=== PATIENT | male | born 1950 | race Caucasian/White ===

== ENCOUNTER → 2017-05-15 | Outpatient (CLI) | payer OTHER ==
[~2017-05-15] MED LIST: AMLO5 PO; ASPI325 PO; BENTYL10 MG PO; CODACE30 PO; DIVALPROEX PO; FISH1000 PO; LEVSOD100 PO; LISHYD2025 PO; MELO7.5 PO; METO50ER PO; SIMV40 PO
[2017-05-15 18:54] LABS: BASOPHILS ABSOLUTE AUTO 0.12 K/mm3 (0.00-0.23); BASOPHILS PERCENT AUTO 1 % (0-2); EOSINOPHILS ABSOLUTE AUTO 0.42 K/mm3 (0.00-0.68); EOSINOPHILS PERCENT AUTO 4 % (0-6); Hematocrit 47.7 % (37.0-53.0); Hemoglobin 16.4 g/dL (13.5-17.5); IMMATURE GRAN ABSOLUTE AUTO 0.06 K/mm3 (0.00-0.10); IMMATURE GRAN PERCENT AUTO 1 % (0-1); LYMPHOCYTES ABSOLUTE AUTO 4.15 K/mm3 (0.84-5.20); LYMPHOCYTES PERCENT AUTO 39 % (21-46); MONOCYTES ABSOLUTE AUTO 1.12 K/mm3 (0.16-1.47); MONOCYTES PERCENT AUTO 11 % (4-13); Mean Corpuscular HGB 31.5 pg (26.0-34.0); Mean Corpuscular HGB Conc 34.4 g/dL (31.5-36.5); Mean Corpuscular Volume 92 fL (80-100); Mean Platelet Volume 10.4 fL (9.1-12.4); NEUTROPHILS ABSOLUTE AUTO 4.79 K/mm3 (1.96-9.15); NEUTROPHILS PERCENT AUTO 45 % (41-73); Platelet Count 300 K/mm3 (150-400); RDW Coefficient Variation 12.5 % (11.7-14.2); RDW Standard Deviation 41.5 fL (35.1-46.3); Red Blood Cell Count 5.21 M/mm3 (4.30-5.90); White Blood Cell Count 10.66 K/mm3 (4.00-11.30)
[2017-05-15 19:04] LABS: Alanine Aminotransfer (ALT/SGP 50 U/L (12-78); Albumin, Blood 3.8 g/dL (3.4-5.0); Albumin/Globulin Ratio 1.2 (0.8-1.8); Alk Phos 67 U/L (40-126); Anion Gap 8 mmol/L (6-16); Aspartate Aminotrans (AST/SGOT 28 U/L (12-37); Bilirubin, Total 0.3 mg/dL (0.1-1.0); Blood Urea Nitrogen 19 mg/dL (8-24); Bun/Creatinine Ratio 17.6 (12.0-20.0); CO2, Blood 28 mmol/L (21-32); Calcium, Blood 9.4 mg/dL (8.5-10.1); Chloride, Blood 101 mmol/L (98-108); Creatinine, Blood 1.08 mg/dL (0.60-1.20); Globulin, Blood 3.3 g/dL (2.2-4.0); Glomerular Filtration Rate >60 (60-); Glucose, Blood 107 mg/dL (70-99); Potassium, Blood 3.9 mmol/L (3.5-5.5); Sodium, Blood 137 mmol/L (136-145); Total Protein, Blood 7.1 g/dL (6.4-8.2)
== END | disposition home or self-care (01) ==
LOC: LAB EV 18:49
PROVIDERS: Physician Assistant
DX: R10.31 Right lower quadrant pain (principal)
CPT/HCPCS: 80053; 85025

== ENCOUNTER → 2017-11-06 | Outpatient (CLI) | payer MEDICARE | END | disposition home or self-care (01) | LOC: LAB 11:37 → LAB SHORT 11:37 | DX: N39.0 Urinary tract infection, site not specified (principal) | CPT/HCPCS: 87086 ==

== ENCOUNTER → 2019-01-21 | Outpatient (CLI) | payer OTHER | END | disposition home or self-care (01) | LOC: LAB SHORT 12:54 → LAB 12:54 | DX: A02.0 Salmonella enteritis (principal); R19.7 Diarrhea, unspecified | CPT/HCPCS: 87015; 87045; 87046; 87205; 87899 ==

== ENCOUNTER 2019-10-19 10:31 | Inpatient (IN) | payer OTHER ==
[~2019-10-19] VITALS: Ht 175.3 cm; Wt 111.1 kg
[~2019-10-19 10:31] MED LIST changes: -AMLO5 PO; -BENTYL10 MG PO; -CODACE30 PO; -FISH1000 PO; -LISHYD2025 PO
[2019-10-19 10:45] LABS: Calcium, Ionized (POC) 1.17 mmol/L (1.10-1.46); Chloride (POC) 97 mmol/L (98-108); Creatinine (POC) 0.9 mg/dL (0.8-1.3); Glucose (ISTAT POC) 206 mg/dL (70-99); Hemoglobin (POC) 16.7 g/dL (13.5-17.5); Potassium (POC) 4.2 mmol/L (3.5-5.5); Sodium (POC) 137 mmol/L (135-148); Total CO2 (POC) 28 mmol/L (21-32)
[2019-10-19 11:21] LABS: BASOPHILS ABSOLUTE AUTO 0.07 K/mm3 (0.00-0.23); BASOPHILS PERCENT AUTO 1 % (0-2); EOSINOPHILS ABSOLUTE AUTO 0.38 K/mm3 (0.00-0.68); EOSINOPHILS PERCENT AUTO 5 % (0-6); Hematocrit 49.3 % (37.0-53.0); Hemoglobin 16.2 g/dL (13.5-17.5); IMMATURE GRAN ABSOLUTE AUTO 0.06 K/mm3 (0.00-0.10); IMMATURE GRAN PERCENT AUTO 1 % (0-1); LYMPHOCYTES ABSOLUTE AUTO 2.76 K/mm3 (0.84-5.20); LYMPHOCYTES PERCENT AUTO 34 % (21-46); MONOCYTES ABSOLUTE AUTO 0.92 K/mm3 (0.16-1.47); MONOCYTES PERCENT AUTO 11 % (4-13); Mean Corpuscular HGB 30.9 pg (26.0-34.0); Mean Corpuscular HGB Conc 32.9 g/dL (31.5-36.5); Mean Corpuscular Volume 94 fL (80-100); NEUTROPHILS ABSOLUTE AUTO 4.05 K/mm3 (1.96-9.15); NEUTROPHILS PERCENT AUTO 49 % (41-73); Platelet Count 251 K/mm3 (150-400); RDW Coefficient Variation 12.6 % (11.7-14.2); RDW Standard Deviation 43.4 fL (35.1-46.3); Red Blood Cell Count 5.24 M/mm3 (4.30-5.90); White Blood Cell Count 8.24 K/mm3 (4.00-11.30)
[2019-10-19 11:36] LABS: Alanine Aminotransfer (ALT/SGP 44 U/L (12-78); Albumin, Blood 3.8 g/dL (3.4-5.0); Albumin/Globulin Ratio 1.3 (0.8-1.8); Alk Phos 79 U/L (50-136); Anion Gap 5 mmol/L (6-16); Aspartate Aminotrans (AST/SGOT 26 U/L (12-37); Bilirubin, Total 0.4 mg/dL (0.1-1.0); Blood Urea Nitrogen 20 mg/dL (8-24); Bun/Creatinine Ratio 24.2 (12.0-20.0); CO2, Blood 30 mmol/L (21-32); Calcium, Blood 8.9 mg/dL (8.5-10.1); Chloride, Blood 102 mmol/L (98-108); Creatinine, Blood 0.83 mg/dL (0.60-1.20); Globulin, Blood 2.9 g/dL (2.2-4.0); Glomerular Filtration Rate >60 (60-); Glucose, Blood 212 mg/dL (70-99); International Normalized Ratio 0.95; Potassium, Blood 4.3 mmol/L (3.5-5.5); Prothrombin Time Results 10.2 Sec (9.7-11.5); Sodium, Blood 137 mmol/L (136-145); Total Protein, Blood 6.7 g/dL (6.4-8.2); Troponin I <0.015 ng/mL (0.000-0.040)
[2019-10-19] MEDS ORDERED: Dicyclomine HCl10 MG PO (12:24)
[2019-10-19] MEDS ORDERED: METFORMIN HCL500 M2 PO (12:25)
[2019-10-19] MEDS ORDERED: Metoprolol Tart50 MG PO (12:25)
[2019-10-19] MEDS ORDERED: TAMSULOSIN HCL0.4 M1 PO (12:25)
[2019-10-19] MEDS ORDERED: ATOR40TA PO (12:26)
[2019-10-19] MEDS ORDERED: CODACE30 PO (12:27)
[2019-10-19] MEDS ORDERED: AMLO5 PO (12:27)
[2019-10-19] MEDS ORDERED: NAPROXEN500 MG PO (12:28)
[2019-10-19] MEDS ORDERED: Ventolin/Prove6.7 GM INH (12:29)
[2019-10-19] MEDS ORDERED: NEURONTIN300 MG PO (12:29)
[2019-10-19] MEDS ORDERED: ZESTORETIC 20-1 EAC3 PO (12:30)
[2019-10-19] MEDS ORDERED: LEVSOD25 PO (12:30)
[2019-10-19] MEDS ORDERED: FISH OIL 1,2001 EAC1 PO (12:30)
--- NOTE | 2019-10-19 18:17 | NUR ---
PT ARRIVED TO THE UNIT VIA STRETCHER, REPORT RECEIVED FROM TIMBO POZO. PT IS HERE FOR CP WITH ST ELEVATION. PT IS ALERT AND ORIENTED X4, PLEASANT AND COOPERATIVE. GETS UP TO USE BATHROOM FOR TOILETING. VITALS HRR NSR AT 70'S, BP SYSTOLIC 110'S, SATS ABOVE 95% ON 4L OF O2, AFEBRILE. DENIES CHEST PAIN AT THIS TIME, SOB NOTED WITH EXERTION, EXPIRATORY WHEEZES. PT PLAN TO GET ANGIOGRAM TOMORROW, PT NPO AFTER MIDNIGHT PT IS AWARE. PT RESTING IN BED NO COMPLAINS AT THIS TIME, WILL REPORT TO ONCOMING SHIFT.
[2019-10-20 04:20] LABS: BASOPHILS ABSOLUTE AUTO 0.06 K/mm3 (0.00-0.23); BASOPHILS PERCENT AUTO 1 % (0-2); EOSINOPHILS ABSOLUTE AUTO 0.28 K/mm3 (0.00-0.68); EOSINOPHILS PERCENT AUTO 4 % (0-6); Hematocrit 47.1 % (37.0-53.0); Hemoglobin 15.2 g/dL (13.5-17.5); IMMATURE GRAN ABSOLUTE AUTO 0.06 K/mm3 (0.00-0.10); IMMATURE GRAN PERCENT AUTO 1 % (0-1); LYMPHOCYTES ABSOLUTE AUTO 2.22 K/mm3 (0.84-5.20); LYMPHOCYTES PERCENT AUTO 32 % (21-46); MONOCYTES ABSOLUTE AUTO 0.73 K/mm3 (0.16-1.47); MONOCYTES PERCENT AUTO 11 % (4-13); Mean Corpuscular HGB 30.8 pg (26.0-34.0); Mean Corpuscular HGB Conc 32.3 g/dL (31.5-36.5); Mean Corpuscular Volume 95 fL (80-100); Mean Platelet Volume 10.6 fL (9.1-12.4); NEUTROPHILS ABSOLUTE AUTO 3.62 K/mm3 (1.96-9.15); NEUTROPHILS PERCENT AUTO 52 % (41-73); Platelet Count 200 K/mm3 (150-400); RDW Coefficient Variation 12.7 % (11.7-14.2); RDW Standard Deviation 44.3 fL (35.1-46.3); Red Blood Cell Count 4.94 M/mm3 (4.30-5.90); White Blood Cell Count 6.97 K/mm3 (4.00-11.30)
[2019-10-20 04:36] LABS: International Normalized Ratio 0.98; Prothrombin Time Results 10.5 Sec (9.7-11.5)
[2019-10-20 04:41] LABS: Alanine Aminotransfer (ALT/SGP 36 U/L (12-78); Albumin, Blood 3.3 g/dL (3.4-5.0); Albumin/Globulin Ratio 1.2 (0.8-1.8); Alk Phos 60 U/L (50-136); Anion Gap 4 mmol/L (6-16); Aspartate Aminotrans (AST/SGOT 24 U/L (12-37); Bilirubin, Total 0.3 mg/dL (0.1-1.0); Blood Urea Nitrogen 23 mg/dL (8-24); Bun/Creatinine Ratio 26.6 (12.0-20.0); CO2, Blood 33 mmol/L (21-32); Chloride, Blood 100 mmol/L (98-108); Creatinine, Blood 0.87 mg/dL (0.60-1.20); Globulin, Blood 2.7 g/dL (2.2-4.0); Glomerular Filtration Rate >60 (60-); Glucose, Blood 192 mg/dL (70-99); Potassium, Blood 3.7 mmol/L (3.5-5.5); Sodium, Blood 137 mmol/L (136-145)
--- NOTE | 2019-10-20 05:33 | NUR ---
SHIFT SUMMARY: PATIENT HAD NO EPISODES THIS SHIFT, HAS BEEN NPO SINCE 0000, VSS, CALL LIGHT WITHIN REACH, BED LOW AND LOCKED.
--- NOTE | 2019-10-20 10:06 | NUR ---
ASSUME CARE: PT ALERT AND ORIENTED, VITALS HRR SINUS ONT THE 70'S, BP SYSTOLIC 110'S, SATS ABOVE 93% ON 3L SOB WITH EXERTION. ANGIOGRAM CANCELLED TODAY TROPONINS HAS BEEN NEGATIVE PT DENIES CHEST PAIN. DR AZEVEDO RECOMMENDED TO DO STRESS TEST AN OUTPATIENT AT THIS TIME. PT INDEPENDENT IN THE ROOM, NO COMPLAINS AWAITING ORDERS. WILL MONITOR
--- NOTE | 2019-10-20 18:03 | NUR ---
PT SUMMARY: SEE PREVIOUS NOTES. NO OTHER ISSUES ENCOUNTERED FOR THE SHIFT, VITALS HAS BEEN STABLE. PT FOR POSSIBLE DISCHARGE TOMORROW. TO TITRATE O2 TO ROOMAIR. PT CURRENTLY NOW AT 1L OF O2, SATS ABOVE 92%, PT HAS BEEN INDEPENDENT IN THE ROOM. NO C/O CHEST PAIN. WILL REPORT TO ONCOMING SHIFT.
[2019-10-21 04:30] LABS: Anion Gap 5 mmol/L (6-16); Blood Urea Nitrogen 16 mg/dL (8-24); Bun/Creatinine Ratio 21.9 (12.0-20.0); CO2, Blood 29 mmol/L (21-32); Calcium, Blood 8.7 mg/dL (8.5-10.1); Chloride, Blood 101 mmol/L (98-108); Creatinine, Blood 0.73 mg/dL (0.60-1.20); Glomerular Filtration Rate >60 (60-); Glucose, Blood 180 mg/dL (70-99); Sodium, Blood 135 mmol/L (136-145)
--- NOTE | 2019-10-21 08:00 | NUR ---
pt sitting up in chair for breakfast, states he is ready to go home, feels good, a/ox3, pleasant and cooperative with care, follows commands well, denies any pain or sob, states he slept well, lungs are clear dim in bases, resp even and unlabord, no cough noted, is currently on 1 liter 02 via n/c, hrr, tele in place, running sr per monitor, see strip, no edema noted, ppp+2, cap refill <3sec, v.s. sable, afebrile, iv sites are clear and patent, btx4, abd flat soft nontender, voids without diff, skin c/w/d, maew, felicia, call light in reach.
[2019-10-21] MEDS ORDERED: CLOP75 PO (10:28)
[2019-10-21] MEDS ORDERED: ASPI81CH PO (10:28)
[2019-10-21] MEDS ORDERED: PRED20 PO (10:29)
[2019-10-21] MEDS ORDERED: PROAIR RESPICL90 MCG INH (10:30)
[2019-10-21] MEDS ORDERED: FLUTICASONE-SA1 EA11 INH (10:31)
[2019-10-21] MEDS ORDERED: PANT20 PO (10:32)
[2019-10-21] MEDS ORDERED: IPRAT-ALBUT 0.5-3 ML INH (10:32)
--- NOTE | 2019-10-21 11:24 | NUR ---
PT HAS BEEN DISCHARGED TO HOME, WENT OVER DISCHARGE INSTRUCTIONS WITH HIM, HE VERBALIZED UNDERSTANDING, IV X2 REMOVED INTACT, LEFT VIA WHEELCHAIR WITH ESCORT AND FRIEND WHO IS TAKING HIM HOME, NEW MEDICATIONS WERE CALLED INTO HIS PHARMACY. PT HAS ALL HIS BELONGINGS WITH HIM.
== END 2019-10-21 11:32 | disposition home or self-care (01) | DRG 189 ==
LOC: ER 10:31 → PCU 13:04
PROVIDERS: Emergency Medicine; Internal Medicine; Nurse Practitioner Acute Care; ADMIT Internal Medicine
DX: J96.01 Acute respiratory failure with hypoxia (principal); J44.1 Chronic obstructive pulmonary disease with (acute) exacerbation; J96.02 Acute respiratory failure with hypercapnia; I10 Essential (primary) hypertension; E11.9 Type 2 diabetes mellitus without complications; I25.10 Atherosclerotic heart disease of native coronary artery without angina pectoris; G47.33 Obstructive sleep apnea (adult) (pediatric); E03.9 Hypothyroidism, unspecified; E78.5 Hyperlipidemia, unspecified; Z95.5 Presence of coronary angioplasty implant and graft; I25.2 Old myocardial infarction; Z79.82 Long term (current) use of aspirin; Z87.891 Personal history of nicotine dependence
CPT/HCPCS: 36415; 71045; 71260; 80047; 80048; 80053; 82947; 83735; 83880; 84484; 85014; 85025; 85610; 85730; 93005; 93010; 94640; 94760; 94761; 99285-25; A9270-GY; C8929; J1650; J1940; J7030; J7512; Q9957; Q9967; U0002

== ENCOUNTER → 2020-03-01 | Outpatient (CLI) | payer OTHER ==
[~2020-03-01] MED LIST changes: +AMLO5 PO; +ASPI81CH PO; +ATOR40TA PO; +CLOP75 PO; +CODACE30 PO; +Dicyclomine HCl10 MG PO; +FISH OIL 1,2001 EAC1 PO; +FLUTICASONE-SA1 EA11 INH; +IPRAT-ALBUT 0.5-3 ML INH; +LEVSOD25 PO; +METFORMIN HCL500 M2 PO; +Metoprolol Tart50 MG PO; +NAPROXEN500 MG PO; +NEURONTIN300 MG PO; +PANT20 PO; +PRED20 PO; +PROAIR RESPICL90 MCG INH; +TAMSULOSIN HCL0.4 M1 PO; +Ventolin/Prove6.7 GM INH; +ZESTORETIC 20-1 EAC3 PO
== END | disposition home or self-care (01) ==
LOC: LAB 12:37
DX: N39.0 Urinary tract infection, site not specified (principal)
CPT/HCPCS: 87086

== ENCOUNTER 2020-11-30 03:19 | Emergency (ER) | payer OTHER ==
[~2020-11-30] VITALS: Ht 175.3 cm; Wt 102.1 kg
[2020-11-30] MEDS ORDERED: QUET25 PO (14:27)
== END 2020-11-30 07:08 | disposition home or self-care (01) ==
LOC: ER 03:19
DX: F31.9 Bipolar disorder, unspecified (principal); F29 Unspecified psychosis not due to a substance or known physiological condition; E11.9 Type 2 diabetes mellitus without complications; J44.9 Chronic obstructive pulmonary disease, unspecified; I25.2 Old myocardial infarction; Z91.14 Patient's other noncompliance with medication regimen; Z95.5 Presence of coronary angioplasty implant and graft; Z79.899 Other long term (current) drug therapy; Z79.84 Long term (current) use of oral hypoglycemic drugs; Z79.82 Long term (current) use of aspirin
CPT/HCPCS: 99285; A9270; Q3014

== ENCOUNTER 2020-11-30 11:44 | Emergency (ER) | payer OTHER ==
[~2020-11-30] VITALS: Ht 175.3 cm; Wt 102.1 kg
[2020-11-30 12:18] LABS: BASOPHILS ABSOLUTE AUTO 0.02 K/mm3 (0.00-0.23); BASOPHILS PERCENT AUTO 0 % (0-2); EOSINOPHILS PERCENT AUTO 0 % (0-6); Hematocrit 46.1 % (37.0-53.0); Hemoglobin 16.1 g/dL (13.5-17.5); IMMATURE GRAN ABSOLUTE AUTO 0.01 K/mm3 (0.00-0.10); IMMATURE GRAN PERCENT AUTO 0 % (0-1); LYMPHOCYTES ABSOLUTE AUTO 1.44 K/mm3 (0.84-5.20); LYMPHOCYTES PERCENT AUTO 26 % (21-46); MONOCYTES PERCENT AUTO 9 % (4-13); Mean Corpuscular HGB 31.8 pg (26.0-34.0); Mean Corpuscular HGB Conc 34.9 g/dL (31.5-36.5); Mean Corpuscular Volume 91 fL (80-100); NEUTROPHILS PERCENT AUTO 64 % (41-73); Platelet Count 199 K/mm3 (150-400); RDW Coefficient Variation 12.4 % (11.7-14.2); RDW Standard Deviation 40.9 fL (35.1-46.3); Red Blood Cell Count 5.06 M/mm3 (4.30-5.90); White Blood Cell Count 5.47 K/mm3 (4.00-11.30)
[2020-11-30 12:26] LABS: Alanine Aminotransfer (ALT/SGP 72 U/L (12-78); Albumin, Blood 3.6 g/dL (3.4-5.0); Albumin/Globulin Ratio 1.1 (0.8-1.8); Alk Phos 68 U/L (50-136); Anion Gap 9 mmol/L (6-16); Aspartate Aminotrans (AST/SGOT 59 U/L (12-37); Bilirubin, Total 0.7 mg/dL (0.1-1.0); Blood Urea Nitrogen 18 mg/dL (8-24); Bun/Creatinine Ratio 19.3 (12.0-20.0); CO2, Blood 28 mmol/L (21-32); Calcium, Blood 8.7 mg/dL (8.5-10.1); Chloride, Blood 95 mmol/L (98-108); Creatinine, Blood 0.93 mg/dL (0.60-1.20); Globulin, Blood 3.3 g/dL (2.2-4.0); Glomerular Filtration Rate >60 (60-); Glucose, Blood 125 mg/dL (70-99); Potassium, Blood 3.6 mmol/L (3.5-5.5); Sodium, Blood 132 mmol/L (136-145); Total Protein, Blood 6.9 g/dL (6.4-8.2)
[2020-11-30 13:04] LABS: Source, Urine Voided
[2020-11-30 13:17] LABS: Appearance, Urine Clear (Clear); Bilirubin, Urine Neg (Neg); Blood, Urine Neg (Neg); Color, Urine Yellow (P-Yellow); Glucose Qualitative, Urine Neg (Neg); Ketones, Urine 3+ (Neg); Leukocyte Esterase, Urine 1+ (Neg); Nitrite, Urine Neg (Neg); Protein, Urine 1+ (Neg); Specific Gravity, Urine 1.015 (1.003-1.022); Urobilinogen, Urine NORM (Normal)
[2020-11-30 13:32] LABS: U Amphetamine Screen Not Detected; U Barbituate Screen Not Detected; U Benzodiazapine Screen Not Detected; U Buprenorphine Screen Not Detected; U Cannabinoids Screen DETECTED; U Cocaine Screen Not Detected; U Methadone Screen Not Detected; U Methamphetamine Screen Not Detected; U Opiates Screen DETECTED; U Oxycodone Screen Not Detected; U Phencyclidine Screen Not Detected; U Propoxyphene Screen Not Detected
[2020-11-30 13:34] LABS: Bacteria Few /hpf; Hyaline Casts 0-2 /lpf (0-2); Red Blood Cells, Urine 0-2 /hpf (0-2); Squamous Epithelial Cells Few /hpf (Few)
[2020-11-30 14:08] LABS: SARS-Cov-2 (COVID-19) PCR, MMC POSITIVE (NEGATIVE)
[2020-11-30] MEDS ORDERED: QUET25 PO (14:27)
== END 2020-11-30 15:19 | disposition home or self-care (01) ==
LOC: ER 11:44
PROVIDERS: Emergency Medicine
DX: F32.2 Major depressive disorder, single episode, severe without psychotic features (principal); U07.1 COVID-19; E11.9 Type 2 diabetes mellitus without complications; I25.2 Old myocardial infarction; J44.9 Chronic obstructive pulmonary disease, unspecified; G43.909 Migraine, unspecified, not intractable, without status migrainosus; Z91.018 Allergy to other foods; Z88.5 Allergy status to narcotic agent; Z79.899 Other long term (current) drug therapy; Z79.84 Long term (current) use of oral hypoglycemic drugs; Z79.82 Long term (current) use of aspirin; Z79.02 Long term (current) use of antithrombotics/antiplatelets; Z95.5 Presence of coronary angioplasty implant and graft; Z87.442 Personal history of urinary calculi
CPT/HCPCS: 36415; 70450; 71045; 80053; 81001; 83735; 85025; 87086; 93005; 93010; 96374; 99285-25; G0480; J2060; U0004

== ENCOUNTER 2020-12-02 15:03 | Emergency (ER) | payer OTHER ==
[~2020-12-02] VITALS: Ht 175.3 cm; Wt 111.1 kg
[~2020-12-02 15:03] MED LIST changes: +QUET25 PO
[2020-12-02 15:30] LABS: BASOPHILS ABSOLUTE AUTO 0.02 K/mm3 (0.00-0.23); BASOPHILS PERCENT AUTO 0 % (0-2); EOSINOPHILS PERCENT AUTO 0 % (0-6); Hematocrit 47.6 % (37.0-53.0); Hemoglobin 17.2 g/dL (13.5-17.5); IMMATURE GRAN ABSOLUTE AUTO 0.02 K/mm3 (0.00-0.10); IMMATURE GRAN PERCENT AUTO 0 % (0-1); LYMPHOCYTES PERCENT AUTO 23 % (21-46); MONOCYTES ABSOLUTE AUTO 0.58 K/mm3 (0.16-1.47); MONOCYTES PERCENT AUTO 10 % (4-13); Mean Corpuscular HGB 31.4 pg (26.0-34.0); Mean Corpuscular HGB Conc 36.1 g/dL (31.5-36.5); Mean Corpuscular Volume 87 fL (80-100); Mean Platelet Volume 10.8 fL (9.1-12.4); NEUTROPHILS ABSOLUTE AUTO 3.74 K/mm3 (1.96-9.15); NEUTROPHILS PERCENT AUTO 66 % (41-73); Platelet Count 250 K/mm3 (150-400); RDW Coefficient Variation 11.9 % (11.7-14.2); RDW Standard Deviation 38.2 fL (35.1-46.3); Red Blood Cell Count 5.47 M/mm3 (4.30-5.90); White Blood Cell Count 5.66 K/mm3 (4.00-11.30)
[2020-12-02 15:42] LABS: Alanine Aminotransfer (ALT/SGP 76 U/L (12-78); Albumin, Blood 3.4 g/dL (3.4-5.0); Albumin/Globulin Ratio 0.9 (0.8-1.8); Alk Phos 78 U/L (50-136); Anion Gap 14 mmol/L (6-16); Aspartate Aminotrans (AST/SGOT 69 U/L (12-37); Bilirubin, Total 0.9 mg/dL (0.1-1.0); Blood Urea Nitrogen 23 mg/dL (8-24); Bun/Creatinine Ratio 28.4 (12.0-20.0); CO2, Blood 24 mmol/L (21-32); Calcium, Blood 8.5 mg/dL (8.5-10.1); Chloride, Blood 89 mmol/L (98-108); Creatinine, Blood 0.81 mg/dL (0.60-1.20); Globulin, Blood 3.8 g/dL (2.2-4.0); Glomerular Filtration Rate >60 (60-); Glucose, Blood 124 mg/dL (70-99); Potassium, Blood 3.1 mmol/L (3.5-5.5); Sodium, Blood 127 mmol/L (136-145); Total Protein, Blood 7.2 g/dL (6.4-8.2)
[2020-12-02 15:53] LABS: Source, Urine Clean Catch
[2020-12-02 15:59] LABS: Appearance, Urine Clear (Clear); Bilirubin, Urine Neg (Neg); Blood, Urine Neg (Neg); Color, Urine Yellow (P-Yellow); Glucose Qualitative, Urine Neg (Neg); Ketones, Urine 4+ (Neg); Leukocyte Esterase, Urine 3+ (Neg); Nitrite, Urine Neg (Neg); Protein, Urine Neg (Neg); Urobilinogen, Urine NORM (Normal)
[2020-12-02 16:13] LABS: Bacteria Mod /hpf; Red Blood Cells, Urine 0-2 /hpf (0-2); Squamous Epithelial Cells Few /hpf (Few)
[2020-12-02] MEDS ORDERED: CEPH500 PO (16:27)
[2020-12-03] MEDS ORDERED: ONDA4ODT MM ×2 (09:58→10:52)
== END 2020-12-02 18:35 | disposition home or self-care (01) ==
LOC: ER 15:03
PROVIDERS: Physician Assistant
DX: F31.9 Bipolar disorder, unspecified (principal); E87.1 Hypo-osmolality and hyponatremia; N30.00 Acute cystitis without hematuria; E11.9 Type 2 diabetes mellitus without complications; I25.2 Old myocardial infarction; Z91.018 Allergy to other foods; Z88.5 Allergy status to narcotic agent; Z79.899 Other long term (current) drug therapy; Z79.84 Long term (current) use of oral hypoglycemic drugs; Z79.82 Long term (current) use of aspirin; Z79.02 Long term (current) use of antithrombotics/antiplatelets; J44.9 Chronic obstructive pulmonary disease, unspecified; Z95.5 Presence of coronary angioplasty implant and graft
CPT/HCPCS: 80053; 81001; 85025; 87086; 93005; 93010; 99285-25; J7030

== ENCOUNTER 2020-12-03 09:33 | Emergency (ER) | payer OTHER ==
[~2020-12-03] VITALS: Ht 175.3 cm; Wt 113.4 kg
[~2020-12-03 09:33] MED LIST changes: +CEPH500 PO
[2020-12-03] MEDS ORDERED: ONDA4ODT MM ×2 (09:58→10:52)
== END 2020-12-03 10:33 | disposition home or self-care (01) ==
LOC: ER 09:33
DX: U07.1 COVID-19 (principal); F31.9 Bipolar disorder, unspecified; E11.9 Type 2 diabetes mellitus without complications; I25.2 Old myocardial infarction; J44.9 Chronic obstructive pulmonary disease, unspecified; Z91.018 Allergy to other foods; G40.909 Epilepsy, unspecified, not intractable, without status epilepticus; Z88.5 Allergy status to narcotic agent; Z79.899 Other long term (current) drug therapy; Z79.84 Long term (current) use of oral hypoglycemic drugs; Z79.82 Long term (current) use of aspirin; Z79.02 Long term (current) use of antithrombotics/antiplatelets
CPT/HCPCS: 99283

== ENCOUNTER 2020-12-04 15:37 | Emergency (ER) | payer OTHER ==
[~2020-12-04] VITALS: Ht 185.4 cm; Wt 99.8 kg
[~2020-12-04 15:37] MED LIST changes: +ONDA4ODT MM
== END 2020-12-04 16:45 | disposition home or self-care (01) ==
LOC: ER 15:37
DX: L29.9 Pruritus, unspecified (principal); F20.9 Schizophrenia, unspecified; I25.2 Old myocardial infarction; E11.9 Type 2 diabetes mellitus without complications; J44.9 Chronic obstructive pulmonary disease, unspecified; Z91.018 Allergy to other foods; Z88.5 Allergy status to narcotic agent; Z79.899 Other long term (current) drug therapy; Z79.84 Long term (current) use of oral hypoglycemic drugs; Z95.5 Presence of coronary angioplasty implant and graft
CPT/HCPCS: 99282

== ENCOUNTER 2020-12-05 19:20 | Observation (INO) | payer OTHER ==
[~2020-12-05] VITALS: Ht 175.3 cm; Wt 113.4 kg
[~2020-12-05 19:20] MED LIST changes: +METO50 PO; -Metoprolol Tart50 MG PO
[2020-12-05 22:38] LABS: Source, Urine Clean Catch
[2020-12-05 22:41] LABS: Bilirubin, Urine Neg (Neg); Blood, Urine Neg (Neg); Glucose Qualitative, Urine Neg (Neg); Ketones, Urine 2+ (Neg); Leukocyte Esterase, Urine 2+ (Neg); Nitrite, Urine Neg (Neg); Protein, Urine Neg (Neg); Specific Gravity, Urine 1.015 (1.003-1.022); Urobilinogen, Urine NORM (Normal)
[2020-12-05 22:43] LABS: BASOPHILS ABSOLUTE AUTO 0.04 K/mm3 (0.00-0.23); BASOPHILS PERCENT AUTO 1 % (0-2); EOSINOPHILS ABSOLUTE AUTO 0.09 K/mm3 (0.00-0.68); EOSINOPHILS PERCENT AUTO 1 % (0-6); Hematocrit 46.5 % (37.0-53.0); Hemoglobin 16.7 g/dL (13.5-17.5); IMMATURE GRAN ABSOLUTE AUTO 0.07 K/mm3 (0.00-0.10); IMMATURE GRAN PERCENT AUTO 1 % (0-1); LYMPHOCYTES ABSOLUTE AUTO 1.59 K/mm3 (0.84-5.20); LYMPHOCYTES PERCENT AUTO 20 % (21-46); MONOCYTES ABSOLUTE AUTO 0.95 K/mm3 (0.16-1.47); MONOCYTES PERCENT AUTO 12 % (4-13); Mean Corpuscular HGB 31.4 pg (26.0-34.0); Mean Corpuscular HGB Conc 35.9 g/dL (31.5-36.5); Mean Corpuscular Volume 87 fL (80-100); Mean Platelet Volume 10.4 fL (9.1-12.4); NEUTROPHILS ABSOLUTE AUTO 5.23 K/mm3 (1.96-9.15); NEUTROPHILS PERCENT AUTO 66 % (41-73); Platelet Count 339 K/mm3 (150-400); RDW Coefficient Variation 11.9 % (11.7-14.2); Red Blood Cell Count 5.32 M/mm3 (4.30-5.90); White Blood Cell Count 7.97 K/mm3 (4.00-11.30)
[2020-12-05 22:44] LABS: Appearance, Urine Clear (Clear); Color, Urine Yellow (P-Yellow)
[2020-12-05 22:47] LABS: Bacteria Mod /hpf; Red Blood Cells, Urine 0-2 /hpf (0-2); Squamous Epithelial Cells Not Seen /hpf (Few)
[2020-12-05 22:52] LABS: U Amphetamine Screen Not Detected; U Barbituate Screen Not Detected; U Benzodiazapine Screen Not Detected; U Buprenorphine Screen Not Detected; U Cannabinoids Screen Not Detected; U Cocaine Screen Not Detected; U Methadone Screen Not Detected; U Methamphetamine Screen Not Detected; U Opiates Screen DETECTED; U Oxycodone Screen Not Detected; U Phencyclidine Screen Not Detected; U Propoxyphene Screen Not Detected
[2020-12-05 23:02] LABS: Alanine Aminotransfer (ALT/SGP 114 U/L (12-78); Albumin, Blood 3.6 g/dL (3.4-5.0); Alk Phos 73 U/L (50-136); Anion Gap 9 mmol/L (6-16); Aspartate Aminotrans (AST/SGOT 85 U/L (12-37); Blood Urea Nitrogen 34 mg/dL (8-24); Bun/Creatinine Ratio 29.3 (12.0-20.0); CO2, Blood 27 mmol/L (21-32); Chloride, Blood 93 mmol/L (98-108); Creatinine, Blood 1.16 mg/dL (0.60-1.20); Ethanol (Alcohol), Blood, Med <3 mg/dL; Globulin, Blood 3.7 g/dL (2.2-4.0); Glomerular Filtration Rate >60 (60-); Glucose, Blood 91 mg/dL (70-99); Potassium, Blood 3.4 mmol/L (3.5-5.5); Salicylate <1.7 mg/dL (2.8-20.0); Sodium, Blood 129 mmol/L (136-145); Total Protein, Blood 7.3 g/dL (6.4-8.2)
[2020-12-05 23:13] LABS: Thyroid Stimulating Hormone 0.954 uIU/mL (0.360-4.800); Triiodothyronine, Free 2.14 pg/mL (2.18-3.98)
[2020-12-06] MEDS ORDERED: AMLO10 PO (01:42)
[2020-12-06] MEDS ORDERED: Fish Oil 340 mg-1,00 PO (01:43)
[2020-12-06] MEDS ORDERED: Glucophage 500 mg PO (01:44)
[2020-12-06] MEDS ORDERED: PANT20 PO (01:46)
[2020-12-06] MEDS ORDERED: QUETIAPINE FUMA25 MG PO (01:47)
[2020-12-06] MEDS ORDERED: FLOMAX0.4 MG PO (01:48)
[2020-12-06 05:25] LABS: BASOPHILS ABSOLUTE AUTO 0.06 K/mm3 (0.00-0.23); BASOPHILS PERCENT AUTO 1 % (0-2); EOSINOPHILS ABSOLUTE AUTO 0.18 K/mm3 (0.00-0.68); EOSINOPHILS PERCENT AUTO 2 % (0-6); Hematocrit 43.7 % (37.0-53.0); Hemoglobin 15.3 g/dL (13.5-17.5); IMMATURE GRAN ABSOLUTE AUTO 0.07 K/mm3 (0.00-0.10); IMMATURE GRAN PERCENT AUTO 1 % (0-1); LYMPHOCYTES ABSOLUTE AUTO 2.15 K/mm3 (0.84-5.20); LYMPHOCYTES PERCENT AUTO 27 % (21-46); MONOCYTES PERCENT AUTO 13 % (4-13); Mean Corpuscular HGB 31.3 pg (26.0-34.0); Mean Corpuscular Volume 89 fL (80-100); Mean Platelet Volume 10.7 fL (9.1-12.4); NEUTROPHILS ABSOLUTE AUTO 4.41 K/mm3 (1.96-9.15); NEUTROPHILS PERCENT AUTO 56 % (41-73); Platelet Count 313 K/mm3 (150-400); RDW Coefficient Variation 11.9 % (11.7-14.2); RDW Standard Deviation 39.1 fL (35.1-46.3); Red Blood Cell Count 4.89 M/mm3 (4.30-5.90); White Blood Cell Count 7.87 K/mm3 (4.00-11.30)
[2020-12-06 06:04] LABS: Bilirubin, Total 0.7 mg/dL (0.1-1.0); Bun/Creatinine Ratio 22.6 (12.0-20.0); Calcium, Blood 8.1 mg/dL (8.5-10.1); Creatinine, Blood 1.24 mg/dL (0.60-1.20); Potassium, Blood 3.5 mmol/L (3.5-5.5)
--- NOTE | 2020-12-06 06:31 | NUR ---
SHIFT SUMMARRY PATIENT ADMITTED FROM ER WHILE ASLEEP DURING TRANSPORT. HE IS ALERT BUT CONFUSED. HAD AN EPISODE OF INCONTNENCE ON ROOM SINK AND FLOOR. HE WAS COOPERATIVE WITH CLEANING AND REDIRECTION. NO ACUTE MEDICAL CHANGE THIS SHIFT. COOPERATIVE WITHBLOOD DRW. 6:00AM MEDS HELD BECAUSE WAS ASLEEP.
[2020-12-06 14:31] LABS: U Amphetamine Screen Not Detected; U Barbituate Screen Not Detected; U Benzodiazapine Screen DETECTED; U Buprenorphine Screen Not Detected; U Cannabinoids Screen Not Detected; U Cocaine Screen Not Detected; U Methadone Screen Not Detected; U Methamphetamine Screen Not Detected; U Opiates Screen DETECTED; U Oxycodone Screen Not Detected; U Phencyclidine Screen Not Detected; U Propoxyphene Screen Not Detected
--- NOTE | 2020-12-07 02:06 | NUR ---
0140 PT IS CONFUSED, REPEATEDLY WANDERING OUT OF HIS ROOM INTO AND DOWN THE HALLWAY. WILL NOT STAY IN HIS ROOM. PT HAS COVID AND IS AT RISK FOR INFECTING OTHER PEOPLE. PT WAS PLACED IN A MERISSA BUT WAS ABLE TO GET OUT OF BED STILL WITH JUST A MERISSA, PLACED WRIST RESTRAINTS ON PT. MERISSA AND WRIST RESTRAINTS ARE WORKING WELL TO KEEP PT SAFELY IN HIS ROOM. PT WAS STILL VERY AGITATED, SPOKE WITH DR MCFARLANE, GOT HALDOL ORDERED, WILL ADMINISTER AND EVAL FOR EFFECT. NO OTHER APPARENT SIGNS OF DISTRESS. CALL LIGHT IS IN REACH. BED ALARM IS ON.
--- NOTE | 2020-12-07 04:59 | NUR ---
SHIFT SUMMARRY PATIENT REMAINED AWAKE MOST OF THE NIGHT. HE CONTUOUSLY ATTEMPTED TO DISROBE AND WALK IN THE REGAN PUTTING OTHERS AT RISK DUE TO POSITIVE COVID STATUS. UNSAFE MOVEMENTS AROUND HIS BEDROOM WITH RISK OF INJURY TO SELF. MULTIPLE UNSUCCESSFULL REDIRECTION AND PROMPTING. SAFETY RESTRAINT ORDERED AND ADMINISTERED WITH GOOD EFFECTS AND NO ISSUES. 5MG IM HALDOL PRN ADMINISTERED TO LEFT GLUTEAL MUSCLE WITH RESULTING CALM. ONGOING MONITORING IN PLACE.
[2020-12-07 06:37] LABS: Albumin, Blood 2.9 g/dL (3.4-5.0); Anion Gap 6 mmol/L (6-16); Blood Urea Nitrogen 18 mg/dL (8-24); Bun/Creatinine Ratio 19.8 (12.0-20.0); CO2, Blood 28 mmol/L (21-32); Calcium, Blood 8.8 mg/dL (8.5-10.1); Chloride, Blood 100 mmol/L (98-108); Creatinine, Blood 0.91 mg/dL (0.60-1.20); Glomerular Filtration Rate >60 (60-); Glucose, Blood 87 mg/dL (70-99); Phosphorus, Blood 2.1 mg/dL (2.5-4.9); Potassium, Blood 3.3 mmol/L (3.5-5.5); Sodium, Blood 134 mmol/L (136-145)
--- NOTE | 2020-12-07 16:53 | NUR ---
SHIFT SUMMARY PATIENT IS A/O TO SELF. THE PATIENT WAS COMFUSED AND TRIED TO LEAVE THEIR ROOM THIS MORNING. THE PATIENT WAS MEDICATED PER DR. AGRAWAL'S ORDERS IN THE EMAR. THE PATIENT IS STILL IN VEST AND WRIST RESTRAINTS AT THIS TIME FOR SAFETY. THE PATIENT HAS REFUSED TO TAKE ANY MEDICATION BY MOUTH THIS SHIFT. DR. AGRAWAL WAS NOTIFIED. DR. PARIS WILL CONSULT THE PATIENT THIS EVENING. I WILL CONTINUE TO MONITOR THE PATIENT UNTIL I REPORT TO THE ONCOMING NURSE.
--- NOTE | 2020-12-08 04:17 | NUR ---
PATIENT SLEEPING THROUGHOUT MOST OF SHIFT. BP AND HR HAS BEEN RUNNING HIGH (PROBABLY DUE TO PATIENT NOT SWALLOWING MEDS AND POCKETING THEM.) WHEN PATIENT REQUESTED WATER,I WAS ABLE TO DISSOLVE HIS MEDS IN A MEDICINE CUP WITH SOME WATER TO GET HIM HIS LOPRESSOR. HE SPIT SOME OF THE MEDICINE MIXED WITH WATER BACK OUT BUT HE DID SWALLOW A GOOD AMOUNT.HE IS VERY LETHARGIC. HAD TO INSTRUCT HIM TO SWALLOW. BP STILL ELEVATED BUT HAS IMPROVED SINCE TAKING LOPRESSOR. RESTRAINTS ON IN PLACE. NO SKIN BREAKDOWN NOTED.PATIENT HAS BEEN VERY DROWSY AND CALM OVERNIGHT.
[2020-12-08 05:16] LABS: Mean Corpuscular HGB 31.2 pg (26.0-34.0); Mean Corpuscular HGB Conc 34.8 g/dL (31.5-36.5); Mean Corpuscular Volume 90 fL (80-100); Mean Platelet Volume 10.2 fL (9.1-12.4); Platelet Count 344 K/mm3 (150-400); RDW Coefficient Variation 11.9 % (11.7-14.2); Red Blood Cell Count 5.13 M/mm3 (4.30-5.90); White Blood Cell Count 8.74 K/mm3 (4.00-11.30)
[2020-12-08 05:43] LABS: Anion Gap 7 mmol/L (6-16); Blood Urea Nitrogen 17 mg/dL (8-24); Bun/Creatinine Ratio 19.3 (12.0-20.0); CO2, Blood 28 mmol/L (21-32); Calcium, Blood 8.8 mg/dL (8.5-10.1); Chloride, Blood 101 mmol/L (98-108); Creatinine, Blood 0.88 mg/dL (0.60-1.20); Glomerular Filtration Rate >60 (60-); Glucose, Blood 93 mg/dL (70-99); Potassium, Blood 3.5 mmol/L (3.5-5.5); Sodium, Blood 136 mmol/L (136-145)
--- NOTE | 2020-12-08 18:39 | NUR ---
SHIFT SUMMARY THIS AM THE PATIENT REFUSED ORAL MEDICATION. THE PATIENT'S COGNITIVE STATUS CHANGED. I REPORTED THE CHANGE TO DR. AGRAWAL. THE PATIENT RECEIVED A CT SCAN AND NORMAL SALINE WAS STARTED FOR THE PATIENT. PER PATIENT'S FAMILY THE PATIENT HAS HAD A HISTORY OF SEIZURES IN THE PAST. THE PATIENT IS NOW ALERT, TALKING AND RESTING.
--- NOTE | 2020-12-09 03:14 | NUR ---
PATIENT IS MORE ALERT TODAY. HE STILL POCKETS HIS MEDICATIIONS UNDER HIS TONGUE. I WAS ABLE TO GET HIM TO TAKE HIS LOPRESSOR AND FLOMAX BUT IT TOOK HEAVY ENCOURAGEMENT TO GET HIM TO SWALLOW THE PILLS OR EVEN JUST WATER. HE CALLED HIS SISTER FROM THE ROOM PHONE TONIGHT.ALTHOUGH HE IS MUCH MORE ALERT TODAY, HE STILL GOES IN AND OUT OF CATATONIC STATES. HE HAS SUCTION SET UP AT BEDSIDE, WHICH HE REQUESTS OFTEN. HE IS STILL IN VEST RESTRAINTS AND SOFT WRIST RESTRAINTS.
--- NOTE | 2020-12-09 18:45 | NUR ---
PT IS COVID POSITIVE,PT IS IN SOFT WRIST AND VEST RESTRAINTS, PT IS INCONTINENT, PT REMAIN ON 2L NC PT IS CONFUSED.PT IS IN BED,ROM,FLUID AND NUTRITION PROVIDED, CALL LIGHT WITHIN REACH WILL CONTINUE TO MONITOR.
--- NOTE | 2020-12-09 22:36 | NUR ---
BLOOD PRESSURE PT FOUND TO HAVE BLOOD PRESSURE OF 192/104. MEDICATED WITH PRN IV METOPROLOL AND RECHECKED BP - DOWN TO 175/95. WILL CONTINUE TO MONITOR PT AND RECHECK AROUND MIDNIGHT.
--- NOTE | 2020-12-10 04:20 | NUR ---
MUSIC STORE MANAGER SUMMARY ADMITTED FOR METABOLIC ENCEPHALOPATHY. COVID POSITIVE. PT IS FULL CODE. PT MINIMALLY INTERACTIVE THROUGHOUT THE SHIFT. THIS RN UNABLE TO GET A VERBAL RESPONSE FROM PT BUT PT CONTINUES TO JUST NOD WHEN BEING SPOKEN TO. PT HAD INCREASED BP AT START OF SHIFT. MEDICATED WITH IV METOPROLOL WITH SOME IMPROVEMENT - PT HAD NO CHANGE IN MENTATION. PT DENIED MARI OR OTHER SYMPTOMS. PT IN MERISSA VEST ALL SHIFT DUE TO CONFUSION AND IMPULSIVITY. NO OTHER CONCERNS THIS SHIFT.
--- NOTE | 2020-12-10 05:25 | NUR ---
HOSPITALIST CONTACTED REGARDING PT EXTREME TREMOR AND HX OF ALCOHOL/DRUG USE. PT CIWA SCORE OF 14 - HOSPITALIST TO PUT ORDERS IN FOR WITHDRAWAL. PT MEDICATED PER EMAR.
--- NOTE | 2020-12-10 06:29 | NUR ---
PT MEDICATED WITH IV ATIVAN. PT NOW RESTING IN BED. PASSIVE TREMORS HAVE RESOLVED AT THIS TIME. PULSE OX IS 90%. PT ALSO MEDICATED WITH IV METOPROLOL FOR BLOOD PRESSURE. HR IS NOW 72 AND BP IS NOW 147/71. PT SNORING BUT ROUSABLE.
--- NOTE | 2020-12-10 17:21 | NUR ---
PT IS ALERT AND ORIENTED TO SLEF, PT IS UP IN THE CHAIR WITH STANDBY ASSIST,PT HAVE A BM THIS AFTERNOON,PT IS STILL CONFUSED BUT ALERT AND TALKATIVE TO STAFF THOUGHOUT THE WHOLE SHIFT,PT HAVE TREMORS AT TIMES, PT REMAIN IN MERISSA VEST, PT IS STTING IN THE CHAIR,CHAIR ALARM ON, PT HAVE BEEN EATING AND DRINKING THS PM,PT IS ON ROOOM AIR.CALL LIGHT WITHIN REACH WILL CONTINUE TO MONITOR.
--- NOTE | 2020-12-10 19:52 | NUR ---
AWAKE, REQUESTING TO GO FOR A WALK IN THE HALLWYS. REMAINS UNSTEADY ON FEET. MEDS GIVEN, ASSISTED TO BED, MERISSA VEST IN USE FOR ASFETY. BED ALARM ON. CALL LIGHT IN REACH. ISOLATION PRECAUTIONS MAINTAINED.
--- NOTE | 2020-12-11 04:29 | NUR ---
OIL GAUGER SUMMARY ADMITTED FOR HEPATIC ENCEPHALOPATHY. PT IS FULL CODE. PT AWOKE WITH INCREASED AGITATION AND CONTINUOUS REQUESTS TO GET OUT OF BED. PT IS NOT REDIRECTABLE AND WAS MEDICATED WITH PO SEROQUEL PRN WITH NO IMPROVEMENT IN AGITATION. PT GIVEN IM ZYPREXA - PT VERY ANXIOUS OF SHOTS. PT CONTINUES TO PRESS CALL LIGHT SAYING "I'M WET". PT ATTENDS DRY WHEN CHECKED. PT FIGHTING WITH STAFF DIRECTIONS AND ATTEMPTING TO RIP OFF ATTENDS AND GET OUT OF BED. PT STILL AGITATED AT THIS TIME AND WAS PLACED IN WRIST RESTRAINTS. PT STILL IN MERISSA WELL.
[2020-12-11 05:13] LABS: Hematocrit 44.8 % (37.0-53.0); Hemoglobin 15.7 g/dL (13.5-17.5); Mean Corpuscular HGB 31.7 pg (26.0-34.0); Mean Corpuscular Volume 90 fL (80-100); Mean Platelet Volume 10.1 fL (9.1-12.4); Platelet Count 393 K/mm3 (150-400); RDW Coefficient Variation 12.3 % (11.7-14.2); RDW Standard Deviation 40.7 fL (35.1-46.3); Red Blood Cell Count 4.96 M/mm3 (4.30-5.90); White Blood Cell Count 8.42 K/mm3 (4.00-11.30)
[2020-12-11 05:33] LABS: Albumin, Blood 2.8 g/dL (3.4-5.0); Anion Gap 7 mmol/L (6-16); Blood Urea Nitrogen 29 mg/dL (8-24); Bun/Creatinine Ratio 33.3 (12.0-20.0); CO2, Blood 24 mmol/L (21-32); Calcium, Blood 8.7 mg/dL (8.5-10.1); Chloride, Blood 110 mmol/L (98-108); Creatinine, Blood 0.87 mg/dL (0.60-1.20); Glomerular Filtration Rate >60 (60-); Glucose, Blood 88 mg/dL (70-99); Phosphorus, Blood 2.5 mg/dL (2.5-4.9); Potassium, Blood 3.6 mmol/L (3.5-5.5); Sodium, Blood 141 mmol/L (136-145)
--- NOTE | 2020-12-11 18:43 | NUR ---
PT IS ALERT ORIENTED TO SELF,PT IS IN VEST RESTRAINT,PT WAS VERY AGITATED TODAY,CALLIING STAFF NAME AND YELLING AT STAFF,VERY CONFUSED,PT IS IN BED,BED IN LOW POSITION,PT EAT ABOUT 35% OF HIS DINNER.CALL LIGHT IN REACH
--- NOTE | 2020-12-11 22:35 | NUR ---
PT BECOMING INCREASINGLY AGITATED AND TAKING OFF MERISSA VEST, WANDERING INTO HALLWAY. PT SOMEWHAT REDIRECTABLE AND PUT BACK IN BED. PT CONTINUES TO GET UP WITHOUT ASSISTANCE, REMOVING MERISSA VEST AND WALKING INTO HALLWAY. PT PUT INTO BED AGAIN AND MEDICATED WITH IM HALDOL AND BENADRYL AND IV ATIVAN AFTER PT CUSSING AT STAFF AND BECOMING UNCOOPERATIVE.
--- NOTE | 2020-12-12 04:02 | NUR ---
SIGN SHOP SUPERVISOR SUMMARY AWAKE EARLIER, MADE 2 SUCCESSFUL ATTEMPTS TO GET OUT OF MERISSA VEST, AND TRY TO AMBULATE, EACH TIME STATING HE WAS GOING TO THE "BATHROOM". ASSISTED TO BATHROOM, WHERE HE WOULD SIT ON THE TOILET AND DO NOTHING, THEN TRY TO WANDER ABOUT. SECONT TIME HE BECAME MORE AGITATED AND THREATENING AND RECEIVED B52 - SEE MAR FOR DETAILS. MED EFFECTIVE, HAS BEEN RESTING WITHOUT NOTED FURTHER ATTEMPTS TO TRY TO GET OUT OF BED SINCE MED GIVEN. CALL LIGHT IN REACH. ISOLATION PRECAUTIONS MAINTAINED.
--- NOTE | 2020-12-12 18:37 | NUR ---
SHIFT SUMMARY PT A/O X1 AND BECOMES INCREASINGLY AGITATED. SPEECH IS INCOMPREHENSIBLE AT TIMES AND REPEATING. PT TRIED AT LEAST 4 TIMES TO GET OUT OF RESTRAINTS AND WAS SUCCESSFUL FOR 2 OF THE ATTEMPTS. PT GOT UP AND ALMOST WALKED OUT THE DOOR DURING ONE ATTEMPT AND SLID OUT OF HIS RESTRAINTS ALMOST OUT OF HIS CHAIR FOR THE OTHER ATTEMPT. GOT UP AND HAD A BM THIS SHIFT AND HAS A LITTLE BIT OF PO INTAKE. B52'D THE PATIENT IN RESPONSE TO THEM BECOMING INCREASINGLY AGITATED AND TRYING TO REMOVE THEIR RESTRAINT. THIS CALLED THE PATIENT DOWN AND THEY RESTED FOR THE MAJORITY OF THE SHIFT. VSS. WILL REPORT TO ONCOMING RN.
--- NOTE | 2020-12-12 19:43 | NUR ---
PULLING AT MERISSA, AGITATED. CALLING OUT. NOT REDIRECTABLE. REPOSITIONED. MED GIVEN - SEE MAR FOR DETAILS. CALL LIGHT IN REACH. ISOLATION PRECAUTIONS MAINTAINED
--- NOTE | 2020-12-12 19:45 | NUR ---
PT BECOMES VERY AGITATED AT THE BEGINNING OF SHIFT, PULLING OFF MERISSA AND TRYING TO GET UP. PT NOT REDIRECTABLE AND VERY IMPULSIVE. PT PUT BACK IN BED AND MEDICATED WITH IV ATIVAN, IM HALDOL, AND IM BENADRYL. WILL CONTINUE TO MONITOR.
--- NOTE | 2020-12-13 01:27 | NUR ---
THIS RN GOT A CALL THAT THE PT WAS ATTEMPTING TO PULL MERISSA OVER HEAD AND GET UP. PT INCREASINGLY AGITATED WHEN STAFF ENTERED THE ROOM. PT MEDICATED PER EMAR.
--- NOTE | 2020-12-13 04:18 | NUR ---
DEBT RECOVERY OFFICER SUMMARY ADMITTED FOR ENCEPHALOPATHY. PT IS FULL CODE. PT BECAME AGITATED WITH STAFF AND REMOVED MERISSA VEST TWICE AT THE START OF SHIFT - PT MEDICATED PER EMAR FOR AGITATION X2 THROUGHOUT SHIFT. PT MEDICATED X1 WITH IV METOPROLOL FOR HTN AND IMPROVEMENT TO 150 SYSTOLIC. PT RESTING AT THIS TIME. ISOLATION MAINTAINED.
--- NOTE | 2020-12-13 18:48 | NUR ---
SHIFT SUMMARY PT ALERT TO SELF, PLACE, AND MONTH. RESTRAINTS DISCONTINUED THIS SHIFT. HAVE NOT HAD TO USE B52 ON PATIENT. AGITATION HAS BEEN MANAGED WITH PO PRN SEROQUEL. COVID SYMPTOMS MINIMAL. BED ALARM ON AND SBA TO THE BATHROOM. PT ON CAMERA. HYPERTENSIVE THIS AM AND MEDICATED PER EMR, BP HAS SINCE BEEN STABLE. WILL REPORT TO ONCOMING RN. WILL POSSIBLY DISCHARGE HOME.
--- NOTE | 2020-12-14 05:29 | NUR ---
SHIFT SUMMARY PT CONFUSED AND IMPULSIVE. SETTING OFF BED ALARM OR GETTING NOTIFIED BY TRANS ROUTER OF PT GETTING UP OUT OF BED EVERY 5-15 MINUTES, PT ALSO NOT EASILY REDIRECTABLE. ATTEMPTS TO COME OUT OF ROOM WITH WALKER. MERISSA VEST ORDER REAPPLIED AND ORDER OBTAINED. PT REMAINED IN MERISSA THE REST OF THE NIGHT. STILL ATTEMPTING TO GET OUT OF BED. PRESSING CALL LIGHT NONSTOP. PT FEELING THE URGE TO HAVE A BOWEL MOVEMENT MOST OF THE NIGHT. UP FREQUENTLY TO BSC WITH NO RESULTS. MULTIPLE TIMES TELLING STAFF THAT HE WENT IN HIS BRIEF AND THEN NO BOWEL MOVEMENT FOUND. MEDICATED NEARLY EVERY 4 HOURS WITH PRN SEROQUEL. NO OUTBURSTS THIS EVENING, BUT PT VERY ANXIOUS AND BUSY ALL THE TIME. PT ON RA. VITAL SIGNS STABLE. PT SITTING UP IN BED DRINKING DECAF COFFEE AT THIS TIME. WILL CONTINUE TO MONITOR.
--- NOTE | 2020-12-14 16:07 | NUR ---
SHIFT SUMMARY PT IS AO WITH INTERMITTENT CONFUSION AND IMPULSIVE. EUN BARRETT DC'D THIS AM. PT USES CALL LIGHT FREQUENTLY T/O SHIFT, ABOUT EVERY 5 MINUTES. ENHANCED ISOLATION PRECUATIONS MAINTAINED T/O SHIFT. PT ONE ASSIST TO BCC. PT APPETITE IS POOR. PT IS UP TO CHAIR FOR MEALS. PT IS IN BED, CALL LIGHT IN REACH, LOW POSITION.
--- NOTE | 2020-12-15 04:39 | NUR ---
SHIFT SUMMARY PT'S MENTATION MUCH IMPROVED THIS EVENING. PT ALERT AND ORIENTED. ANSWERING QUESTIONS APPROPRIATELY. CALLING APPROPRIATELY. PT STATES THAT HE "FEELS BETTER". PT WALKED TO RESTROOM WITH FWW. HAD A LARGE BOWEL MOVEMENT. REMAINS WITH SOME WEAKNESS AND SLIGHTLY UNSTEADY BUT TRANSFERS WELL MOSTLY INDEPENDENTLY. PT EATING AND DRINKING WELL THIS EVENING. PT DID STATE THIS MORNING THAT HE FELT LIKE HE WAS GOING TO HAVE A SEIZURE BEFORE STAFF ENTERED THE ROOM BUT ONCE HE WAS "ABLE TO TALK TO SOMEONE" THE FEELING WAS GONE. PT REMAINS ON RA. NO COMPLAINTS OF PAIN THIS SHIFT. PT SLEPT OFF AND ON THROUGHOUT THE NIGHT. BED ALARM AND CAMERA REMAINED ON FOR SAFETY. VITAL SIGNS STABLE. WILL CONTINUE TO MONITOR.
--- NOTE | 2020-12-15 05:52 | NUR ---
CONFUSION PT THIS AM ACTING LIKE HE DID THE NIGHT BEFORE. CONFUSED. DIFFICULT TO REDIRECT. CONSTANTLY GETTING OUT OF BED OR THE CHAIR. ASKED PT WHY HE KEEPS STANDING UP. PT STATES THAT THAT IS WHAT HE DOES WHEN HE HAS A SEIZURE, THAT IT MAKES HIM STAND UP. PT STATES THAT HE DOES NOT WANT TO BE IN THE ROOM ALONE. SO IS EITHER PRESSING THE CALL LIGHT OR GETTING UP EVERY MINUTE OR SO. PT STATES THAT HE NEEDS TO BE SWABBED FOR COVID. STATING THAT IF HE WERE TO BE SWABBED IT WOULD MAKE "ALL OF THIS GO AWAY". STAFF FREQUENTLY AT BEDSIDE AT THIS TIME. VITAL SIGNS STABLE.
[2020-12-15] MEDS ORDERED: EUTHYROX50 MCG PO (11:25)
[2020-12-15] MEDS ORDERED: Catapres-Tts 11 EACH TOP (11:29)
[2020-12-15] MEDS ORDERED: QUET100 PO (11:32)
--- NOTE | 2020-12-15 12:27 | NUR ---
DISCHARGE NOTE PT IS AOX4 AND COOPERATIVE WITH CARE. PT IV REMOVED BY THIS RN PER DOCUMENTATION. DC INSTRUCTIONS REVIEWED WITH PT WHO VERBALIZED UNDERSTANDING. FAMILY NOTIFIED OF PT'S DC AND PT'S FRIEND CAME TO PICK PT UP. THIS RN DRESSED PT IN PAPER SCRUB CLOTHING. PT AGREEABLE TO DC. BELONGINGS GATHERED FROM ROOM. PT ASSISTED INTO WHEELCHAIR BY THIS RN AND NATINAL GUARD SODA WORKER TRANSFERRED PT TO PRIVATE VEHICLE. PT HAS LEFT BUILDING WITH BELONGINGS PRESENT.
== END 2020-12-15 12:24 | disposition home health service (06) ==
LOC: ER 19:20 → MEDS 19:21 → ER 12-06 00:54 → MEDS 12-06 02:02 → ENPENDDIS 12-15 10:35 → MEDS 12-15 12:24
PROVIDERS: Internal Medicine; Physician Assistant; Student in an Organized Health Care Education/Training Program; ADMIT Hospitalist
DX: F31.60 Bipolar disorder, current episode mixed, unspecified (principal); I25.2 Old myocardial infarction; J44.9 Chronic obstructive pulmonary disease, unspecified; I44.0 Atrioventricular block, first degree; I45.10 Unspecified right bundle-branch block; E87.1 Hypo-osmolality and hyponatremia; R74.01 Elevation of levels of liver transaminase levels; F10.20 Alcohol dependence, uncomplicated; R56.9 Unspecified convulsions; U07.1 COVID-19; I25.10 Atherosclerotic heart disease of native coronary artery without angina pectoris; I10 Essential (primary) hypertension; E11.40 Type 2 diabetes mellitus with diabetic neuropathy, unspecified; E03.9 Hypothyroidism, unspecified; N40.0 Benign prostatic hyperplasia without lower urinary tract symptoms; K21.9 Gastro-esophageal reflux disease without esophagitis; N28.1 Cyst of kidney, acquired; J96.02 Acute respiratory failure with hypercapnia; J96.01 Acute respiratory failure with hypoxia; R45.1 Restlessness and agitation; R74.8 Abnormal levels of other serum enzymes; N17.9 Acute kidney failure, unspecified; G47.33 Obstructive sleep apnea (adult) (pediatric); J32.0 Chronic maxillary sinusitis; F10.11 Alcohol abuse, in remission; F11.11 Opioid abuse, in remission; Z88.6 Allergy status to analgesic agent; Z88.5 Allergy status to narcotic agent; Z91.018 Allergy to other foods; Z95.818 Presence of other cardiac implants and grafts; Z79.84 Long term (current) use of oral hypoglycemic drugs
CPT/HCPCS: 36415; 70450; 76705; 80048; 80053; 80069; 81001; 83735; 84443; 84481; 85025; 85027; 87086; 93005; 93010; 94640; 94664; 94762; 96360; 96372-59; 99285-25; A9270; C9113; G0480; J1200; J1630; J1650; J2060; J7030

== ENCOUNTER 2020-12-16 14:22 | Emergency (ER) | payer OTHER ==
[~2020-12-16] VITALS: Ht 175.3 cm; Wt 113.4 kg
[~2020-12-16 14:22] MED LIST changes: +AMLO10 PO; +Catapres-Tts 11 EACH TOP; +EUTHYROX50 MCG PO; +FLOMAX0.4 MG PO; +Fish Oil 340 mg-1,00 PO; +Glucophage 500 mg PO; +QUET100 PO; +QUETIAPINE FUMA25 MG PO
[2020-12-16 14:47] LABS: BASOPHILS ABSOLUTE AUTO 0.07 K/mm3 (0.00-0.23); BASOPHILS PERCENT AUTO 1 % (0-2); EOSINOPHILS ABSOLUTE AUTO 0.19 K/mm3 (0.00-0.68); EOSINOPHILS PERCENT AUTO 2 % (0-6); Hematocrit 45.7 % (37.0-53.0); Hemoglobin 15.7 g/dL (13.5-17.5); IMMATURE GRAN ABSOLUTE AUTO 0.04 K/mm3 (0.00-0.10); IMMATURE GRAN PERCENT AUTO 1 % (0-1); LYMPHOCYTES ABSOLUTE AUTO 2.91 K/mm3 (0.84-5.20); LYMPHOCYTES PERCENT AUTO 34 % (21-46); MONOCYTES ABSOLUTE AUTO 0.94 K/mm3 (0.16-1.47); MONOCYTES PERCENT AUTO 11 % (4-13); Mean Corpuscular HGB 31.3 pg (26.0-34.0); Mean Corpuscular HGB Conc 34.4 g/dL (31.5-36.5); Mean Corpuscular Volume 91 fL (80-100); Mean Platelet Volume 10.4 fL (9.1-12.4); NEUTROPHILS ABSOLUTE AUTO 4.31 K/mm3 (1.96-9.15); NEUTROPHILS PERCENT AUTO 51 % (41-73); Platelet Count 418 K/mm3 (150-400); RDW Standard Deviation 42.5 fL (35.1-46.3); Red Blood Cell Count 5.02 M/mm3 (4.30-5.90); White Blood Cell Count 8.46 K/mm3 (4.00-11.30)
[2020-12-16 15:15] LABS: Alanine Aminotransfer (ALT/SGP 86 U/L (12-78); Albumin, Blood 3.1 g/dL (3.4-5.0); Albumin/Globulin Ratio 0.9 (0.8-1.8); Alk Phos 115 U/L (50-136); Anion Gap 4 mmol/L (6-16); Aspartate Aminotrans (AST/SGOT 76 U/L (12-37); Bilirubin, Total 0.4 mg/dL (0.1-1.0); Blood Urea Nitrogen 16 mg/dL (8-24); CO2, Blood 25 mmol/L (21-32); Calcium, Blood 8.7 mg/dL (8.5-10.1); Chloride, Blood 110 mmol/L (98-108); Creatinine, Blood 0.94 mg/dL (0.60-1.20); Globulin, Blood 3.5 g/dL (2.2-4.0); Glomerular Filtration Rate >60 (60-); Glucose, Blood 122 mg/dL (70-99); Sodium, Blood 139 mmol/L (136-145); Total Protein, Blood 6.6 g/dL (6.4-8.2)
== END 2020-12-16 15:35 | disposition home or self-care (01) ==
LOC: ER 14:22
PROVIDERS: Emergency Medicine
DX: M79.661 Pain in right lower leg (principal); M79.662 Pain in left lower leg; E11.9 Type 2 diabetes mellitus without complications; I25.2 Old myocardial infarction; J44.9 Chronic obstructive pulmonary disease, unspecified; G40.909 Epilepsy, unspecified, not intractable, without status epilepticus; Z91.018 Allergy to other foods; Z88.5 Allergy status to narcotic agent; Z79.899 Other long term (current) drug therapy; Z79.84 Long term (current) use of oral hypoglycemic drugs; Z79.02 Long term (current) use of antithrombotics/antiplatelets; Z79.82 Long term (current) use of aspirin
CPT/HCPCS: 36415; 80053; 85025; 99283

== ENCOUNTER 2021-02-10 05:38 | Emergency (ER) | payer OTHER ==
[~2021-02-10] VITALS: Ht 175.3 cm; Wt 68.0 kg
[2021-02-10] MEDS ORDERED: ACET500 PO (06:31)
== END 2021-02-10 06:43 | disposition home or self-care (01) ==
LOC: ER 05:38
DX: G89.29 Other chronic pain (principal); Z79.899 Other long term (current) drug therapy; Z91.018 Allergy to other foods; Z88.5 Allergy status to narcotic agent; Z79.84 Long term (current) use of oral hypoglycemic drugs; Z79.82 Long term (current) use of aspirin; E11.9 Type 2 diabetes mellitus without complications; J44.9 Chronic obstructive pulmonary disease, unspecified; G40.909 Epilepsy, unspecified, not intractable, without status epilepticus; F31.9 Bipolar disorder, unspecified
CPT/HCPCS: 99283

== ENCOUNTER 2021-02-13 12:35 | Emergency (ER) | payer OTHER ==
[~2021-02-13] VITALS: Ht 175.3 cm; Wt 104.3 kg
[~2021-02-13 12:35] MED LIST changes: +ACET500 PO
== END 2021-02-13 13:20 ==
LOC: ER 12:35
DX: F30.9 Manic episode, unspecified (principal); E11.9 Type 2 diabetes mellitus without complications; I25.2 Old myocardial infarction; J44.9 Chronic obstructive pulmonary disease, unspecified; G40.909 Epilepsy, unspecified, not intractable, without status epilepticus; Z91.018 Allergy to other foods; Z88.6 Allergy status to analgesic agent; Z88.5 Allergy status to narcotic agent; Z79.899 Other long term (current) drug therapy; Z79.84 Long term (current) use of oral hypoglycemic drugs; Z79.02 Long term (current) use of antithrombotics/antiplatelets; Z79.82 Long term (current) use of aspirin
CPT/HCPCS: 99284

== ENCOUNTER 2022-10-30 20:43 | Observation (INO) | payer MEDICARE ==
[~2022-10-30] VITALS: Ht 172.7 cm; Wt 86.2 kg
[~2022-10-30 20:43] MED LIST changes: -FISH OIL 1,2001 EAC1 PO; +FISH OIL 1,2001 EAC4 PO; +PANT40 PO
[2022-10-30 21:19] LABS: BASOPHILS ABSOLUTE AUTO 0.04 K/mm3 (0.00-0.23); BASOPHILS PERCENT AUTO 1 % (0-2); EOSINOPHILS ABSOLUTE AUTO 0.12 K/mm3 (0.00-0.68); EOSINOPHILS PERCENT AUTO 2 % (0-6); Hematocrit 42.8 % (37.0-53.0); Hemoglobin 14.8 g/dL (13.5-17.5); IMMATURE GRAN ABSOLUTE AUTO 0.09 K/mm3 (0.00-0.10); IMMATURE GRAN PERCENT AUTO 1 % (0-1); LYMPHOCYTES ABSOLUTE AUTO 2.18 K/mm3 (0.84-5.20); LYMPHOCYTES PERCENT AUTO 34 % (21-46); MONOCYTES ABSOLUTE AUTO 0.82 K/mm3 (0.16-1.47); MONOCYTES PERCENT AUTO 13 % (4-13); Mean Corpuscular HGB 33.3 pg (26.0-34.0); Mean Corpuscular HGB Conc 34.6 g/dL (31.5-36.5); Mean Corpuscular Volume 96 fL (80-100); Mean Platelet Volume 9.5 fL (9.1-12.4); NEUTROPHILS ABSOLUTE AUTO 3.19 K/mm3 (1.96-9.15); NEUTROPHILS PERCENT AUTO 50 % (41-73); Platelet Count 152 K/mm3 (150-400); RDW Coefficient Variation 12.4 % (11.7-14.2); RDW Standard Deviation 43.8 fL (35.1-46.3); Red Blood Cell Count 4.45 M/mm3 (4.30-5.90); White Blood Cell Count 6.44 K/mm3 (4.00-11.30)
[2022-10-30 21:31] LABS: International Normalized Ratio 1.02; Prothrombin Time Results 10.7 Sec (9.7-11.5)
[2022-10-30 21:41] LABS: Albumin, Blood 2.9 g/dL (3.4-5.0); Bilirubin, Total 0.3 mg/dL (0.1-1.0); Calcium, Blood 8.7 mg/dL (8.5-10.1); Creatinine, Blood 0.92 mg/dL (0.60-1.20); Globulin, Blood 2.8 g/dL (2.2-4.0); Potassium, Blood 4.1 mmol/L (3.5-5.5); Total Protein, Blood 5.7 g/dL (6.4-8.2)
[2022-10-30 22:36] LABS: Magnesium, Blood 1.8 mg/dL (1.6-2.4)
[2022-10-30 23:49] LABS: Source, Urine Clean Catch
[2022-10-30 23:53] LABS: Bilirubin, Urine Neg (Neg); Blood, Urine 1+ (Neg); Color, Urine Yellow (P-Yellow); Glucose Qualitative, Urine Neg (Neg); Ketones, Urine 1+ (Neg); Leukocyte Esterase, Urine 2+ (Neg); Nitrite, Urine Neg (Neg); Protein, Urine 1+ (Neg); Specific Gravity, Urine 1.025 (1.003-1.022); Urobilinogen, Urine 1+ (Normal)
[2022-10-31 00:14] LABS: Appearance, Urine Clear (Clear)
[2022-10-31 00:15] LABS: Bacteria Mod /hpf; Hyaline Casts 0-2 /lpf (0-2); Squamous Epithelial Cells Rare /hpf (Few)
[2022-10-31 00:58] LABS: Influenza A, PCR NEGATIVE (NEGATIVE); Influenza B, PCR NEGATIVE (NEGATIVE); Resp Syncytial Virus, PCR NEGATIVE (NEGATIVE); SARS-Cov-2 (COVID-19) PCR, MMC NEGATIVE (NEGATIVE)
[2022-10-31 20:16] VITALS: BP 179/70
[2022-10-31] MEDS ORDERED: DEPAKOTE ER500 M2 PO (21:38)
[2022-10-31] MEDS ORDERED: LISI5 PO (21:38)
[2022-10-31] MEDS ORDERED: TRAZ150T57 PO (21:39)
[2022-10-31] MEDS ORDERED: RISPERIDONE110 PO (21:40)
[2022-10-31] MEDS ORDERED: Mobic15 MG PO (21:40)
[2022-10-31] MEDS ORDERED: DUTASTERIDE0.5 M3 PO (21:41)
[2022-10-31] MEDS ORDERED: SILVADENE20 G8 TOP (21:42)
[2022-10-31] MEDS ORDERED: PROPRANOLOL HCL80 MG PO (21:43)
[2022-10-31] MEDS ORDERED: CARBIDOPA-LEVO1 EA15 PO (21:44)
[2022-10-31] MEDS ORDERED: CEPH500 PO (21:45)
--- NOTE | 2022-11-01 03:08 | NUR ---
ASSUMED CARE FROM ER. PT VERY PLEASENT MAN WHO DOESNT HAVE FAMILY IN AREA THAT CAN ASSIST WITH CARE SO HAS BEEN STAYING AT FRIENDS. [facility]. 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 ADMISSION DONT PT EATING SNACK NO C/O PAIN NO DISTRESS
[2022-11-01 03:32] VITALS: BP 155/87
--- NOTE | 2022-11-01 05:29 | NUR ---
SHIFT SUMMARY FIRE SAFTY DONE, ADMIT DONE, PT HISTORY OF PARKINSONS GETTING WORSE AND IS AWAITING ADMIT TO [facility]. NO C/O PAIN WOUNDS DOCUMENTED IN CHART WITH PIC. NO FAMILY TO COME SEE PT , PT HAS BEEN STAYING WITH A GOOD FRIEND.
[2022-11-01 05:35] LABS: Hematocrit 40.9 % (37.0-53.0); Hemoglobin 14.3 g/dL (13.5-17.5); Mean Corpuscular HGB 33.3 pg (26.0-34.0); Mean Corpuscular Volume 95 fL (80-100); Mean Platelet Volume 9.2 fL (9.1-12.4); Platelet Count 138 K/mm3 (150-400); RDW Coefficient Variation 12.4 % (11.7-14.2); RDW Standard Deviation 43.1 fL (35.1-46.3); White Blood Cell Count 6.76 K/mm3 (4.00-11.30)
[2022-11-01 07:27] VITALS: BP 142/55
[2022-11-01 08:44] LABS: BASOPHILS ABSOLUTE AUTO 0.04 K/mm3 (0.00-0.23); BASOPHILS PERCENT AUTO 1 % (0-2); EOSINOPHILS ABSOLUTE AUTO 0.11 K/mm3 (0.00-0.68); EOSINOPHILS PERCENT AUTO 2 % (0-6); Hematocrit 41.5 % (37.0-53.0); Hemoglobin 14.4 g/dL (13.5-17.5); IMMATURE GRAN ABSOLUTE AUTO 0.07 K/mm3 (0.00-0.10); IMMATURE GRAN PERCENT AUTO 1 % (0-1); LYMPHOCYTES PERCENT AUTO 36 % (21-46); MONOCYTES ABSOLUTE AUTO 0.96 K/mm3 (0.16-1.47); MONOCYTES PERCENT AUTO 14 % (4-13); Mean Corpuscular HGB 33.3 pg (26.0-34.0); Mean Corpuscular HGB Conc 34.7 g/dL (31.5-36.5); Mean Corpuscular Volume 96 fL (80-100); Mean Platelet Volume 9.4 fL (9.1-12.4); NEUTROPHILS ABSOLUTE AUTO 3.22 K/mm3 (1.96-9.15); NEUTROPHILS PERCENT AUTO 47 % (41-73); Platelet Count 149 K/mm3 (150-400); RDW Coefficient Variation 12.3 % (11.7-14.2); RDW Standard Deviation 43.1 fL (35.1-46.3); Red Blood Cell Count 4.33 M/mm3 (4.30-5.90)
[2022-11-01 08:50] LABS: Bun/Creatinine Ratio 23.8 (12.0-20.0); Calcium, Blood 8.8 mg/dL (8.5-10.1); Creatinine, Blood 0.88 mg/dL (0.60-1.20); Potassium, Blood 4.2 mmol/L (3.5-5.5)
[2022-11-01 15:29] VITALS: BP 137/73
--- NOTE | 2022-11-01 16:12 | NUR ---
PT DISCHARGED REPORT CALLED TO RN AT [facility]. THE PTS ORDERS WERE FAXED TO [facility]. THE PT WAS TRANSFERED VIA WHEELCHAIR ACCOMPANIED BY [employer]
== END 2022-11-01 16:07 ==
LOC: ER 20:43 → MEDS 20:44
PROVIDERS: Emergency Medicine; Internal Medicine; Nurse Practitioner Acute Care; Student in an Organized Health Care Education/Training Program; ADMIT Internal Medicine
DX: N39.0 Urinary tract infection, site not specified (principal); G20 Parkinson's disease; E11.9 Type 2 diabetes mellitus without complications; I25.10 Atherosclerotic heart disease of native coronary artery without angina pectoris; G40.909 Epilepsy, unspecified, not intractable, without status epilepticus; E03.9 Hypothyroidism, unspecified; G47.33 Obstructive sleep apnea (adult) (pediatric); J44.9 Chronic obstructive pulmonary disease, unspecified; F31.9 Bipolar disorder, unspecified; I10 Essential (primary) hypertension; K21.9 Gastro-esophageal reflux disease without esophagitis; Z20.822 Contact with and (suspected) exposure to COVID-19
CPT/HCPCS: 0241U; 36415; 71101; 80048; 80053; 81001; 82947; 83735; 84484; 85025; 85027; 85610; 87086; 93005; 93010; 96361; 96365; 96376; 97110; 97112; 97162; 97530; 99285-25; A9270; C9113; G0378; G0480; J0696; J1650; J7030

== ENCOUNTER → 2023-03-25 | Outpatient (CLI) | payer MEDICARE ==
[~2023-03-25] MED LIST changes: +CARBIDOPA-LEVO1 EA15 PO; +DEPAKOTE ER500 M2 PO; +DUTASTERIDE0.5 M3 PO; +LISI5 PO; +Mobic15 MG PO; +PROPRANOLOL HCL80 MG PO; +RISPERIDONE110 PO; +SILVADENE20 G8 TOP; +TRAZ150T57 PO
[2023-03-25 20:47] LABS: Albumin, Blood 3.5 g/dL (3.4-5.0); Albumin/Globulin Ratio 1.2 (0.8-1.8); Bilirubin, Total 0.5 mg/dL (0.1-1.0); Bun/Creatinine Ratio 31.9 (12.0-20.0); Calcium, Blood 8.8 mg/dL (8.5-10.1); Creatinine, Blood 0.69 mg/dL (0.60-1.20); Potassium, Blood 3.9 mmol/L (3.5-5.5); Total Protein, Blood 6.5 g/dL (6.4-8.2)
== END | disposition home or self-care (01) ==
LOC: LAB 17:41 → LAB SHORT 17:41
PROVIDERS: Family Medicine
DX: N32.0 Bladder-neck obstruction (principal)
CPT/HCPCS: 80053

== ENCOUNTER 2023-04-14 23:13 | Emergency (ER) | payer MEDICARE ==
[~2023-04-14] VITALS: Ht 180.3 cm; Wt 77.1 kg
[2023-04-15 01:09] LABS: BASOPHILS ABSOLUTE AUTO 0.05 K/mm3 (0.00-0.23); BASOPHILS PERCENT AUTO 0 % (0-2); EOSINOPHILS ABSOLUTE AUTO 0.15 K/mm3 (0.00-0.68); EOSINOPHILS PERCENT AUTO 1 % (0-6); Hematocrit 45.2 % (37.0-53.0); Hemoglobin 15.4 g/dL (13.5-17.5); IMMATURE GRAN ABSOLUTE AUTO 0.04 K/mm3 (0.00-0.10); IMMATURE GRAN PERCENT AUTO 0 % (0-1); LYMPHOCYTES ABSOLUTE AUTO 3.68 K/mm3 (0.84-5.20); LYMPHOCYTES PERCENT AUTO 33 % (21-46); MONOCYTES ABSOLUTE AUTO 0.76 K/mm3 (0.16-1.47); MONOCYTES PERCENT AUTO 7 % (4-13); Mean Corpuscular HGB 30.7 pg (26.0-34.0); Mean Corpuscular HGB Conc 34.1 g/dL (31.5-36.5); Mean Corpuscular Volume 90 fL (80-100); Mean Platelet Volume 10.4 fL (9.1-12.4); NEUTROPHILS ABSOLUTE AUTO 6.48 K/mm3 (1.96-9.15); NEUTROPHILS PERCENT AUTO 58 % (41-73); Platelet Count 308 K/mm3 (150-400); RDW Coefficient Variation 13.1 % (11.7-14.2); RDW Standard Deviation 42.9 fL (35.1-46.3); Red Blood Cell Count 5.02 M/mm3 (4.30-5.90); White Blood Cell Count 11.16 K/mm3 (4.00-11.30)
[2023-04-15] MEDS ORDERED: AMLODIPINE BESYL5 MG PO (01:25)
[2023-04-15] MEDS ORDERED: PLAVIX75 MG PO (01:25)
[2023-04-15] MEDS ORDERED: ATOR40TA PO (01:26)
[2023-04-15] MEDS ORDERED: METFORMIN HCL500 M2 PO (01:27)
[2023-04-15 01:31] LABS: Albumin, Blood 3.1 g/dL (3.4-5.0); Albumin/Globulin Ratio 1.1 (0.8-1.8); Bilirubin, Total 0.4 mg/dL (0.1-1.0); Bun/Creatinine Ratio 29.7 (12.0-20.0); Calcium, Blood 8.5 mg/dL (8.5-10.1); Creatinine, Blood 0.61 mg/dL (0.60-1.20); Globulin, Blood 2.8 g/dL (2.2-4.0); Potassium, Blood 3.4 mmol/L (3.5-5.5); Total Protein, Blood 5.9 g/dL (6.4-8.2)
[2023-04-15 02:15] VITALS: BP 115/72
== END 2023-04-15 02:15 | disposition home or self-care (01) ==
LOC: ER 23:13
PROVIDERS: Physician Assistant
DX: S10.93XA Contusion of unspecified part of neck, initial encounter (principal); S20.219A Contusion of unspecified front wall of thorax, initial encounter; W18.30XA Fall on same level, unspecified, initial encounter; G30.9 Alzheimer's disease, unspecified; F02.80 Dementia in other diseases classified elsewhere, unspecified severity, without behavioral disturbance, psychotic disturbance, mood disturbance, and anxiety; E11.9 Type 2 diabetes mellitus without complications; F17.210 Nicotine dependence, cigarettes, uncomplicated
CPT/HCPCS: 70450; 71250; 72125; 80053; 85025; 99284-25

== ENCOUNTER 2023-05-26 18:38 | Emergency (ER) | payer MEDICARE ==
[~2023-05-26] VITALS: Ht 172.7 cm; Wt 88.5 kg
[~2023-05-26 18:38] MED LIST changes: +AMLODIPINE BESYL5 MG PO; +PLAVIX75 MG PO
[2023-05-26 18:43] VITALS: BP 145/74
[2023-05-26] MEDS ORDERED: LORazepam 1 MG Tab PO ONE (20:35)
[2023-05-26] MEDS ORDERED: Nicotine 21 MG PATCH TOP ONE (20:35)
[2023-05-26] MEDS ORDERED: RisperiDONE 1 MG Tab PO ONE (20:35)
[2023-05-26] MEDS ORDERED: Nicoderm Cq1 EAC1 TOP (21:33)
== END 2023-05-26 23:02 | disposition home or self-care (01) ==
LOC: ER 18:38
DX: R45.1 Restlessness and agitation (principal); F31.9 Bipolar disorder, unspecified; E11.9 Type 2 diabetes mellitus without complications; Z79.02 Long term (current) use of antithrombotics/antiplatelets; Z79.84 Long term (current) use of oral hypoglycemic drugs; Z79.890 Hormone replacement therapy; Z79.899 Other long term (current) drug therapy
CPT/HCPCS: 99284; A9270